=== PATIENT | female | born 1990 | race Caucasian/White ===

== ENCOUNTER → 2017-11-24 | Outpatient (REF) ==
[~2017-11-24] MED LIST: DOXY-229 PO; ETON68IM SQ; LEVO1TAB29 PO; PROG100C EC
[2017-11-24 08:43] LABS: LDL CHOLESTEROL 100 mg/dl
== END ==
DX: Z02.9 Encounter for administrative examinations, unspecified (principal)

== ENCOUNTER → 2018-02-15 | Outpatient (CLI) | payer OTHER ==
[~2018-02-15] MED LIST changes: +GADOBENATE 529MG/1ML 15ML VIAL IVP ONE; +NS 0.9% 20 ML SDV 40 ML ONE
--- NOTE | 2018-02-15 14:48 | RADIOLOGY IMAGING REPORT ---
FACILITY: [facility] - [place] PATIENT NAME: Lydia Scales : 1990 MR: [id number] V: [id number] EXAM DATE: ORDERING PHYSICIAN: DANNIE OSMAN TECHNOLOGIST: Location: [facility] [place] Patient: Lydia Scales : 1990 Visit/Account:[id number] Date of Sevice: 02/15/2018 Examination: Pituitary MR without and with contrast History: Rathke's cleft cyst Comparison: 04/28/2016, November 18, 2015, July 24, 2009 Technique: Multiplane pre and postcontrast MR imaging performed through the pituitary region. 12 mL M ultiHance injected. Axial flair and axial diffusion acquisitions obtained through the brain. Findings: There is no diffusion restriction, hydrocephalus or midline shift. No parenchymal signal abnormality. Normal optic chiasm, infundibulum and cavernous sinuses. There is hyperintense T1 signal within the posterior aspect of the sella which loses signal on the fa t-suppressed postcontrast acquisitions as before. Comparing sagittal T1 precontrast acquisitions this appears increased in size now w measuring 4.9 mm craniocaudad by 4.6 mm AP by 1.1 cm transverse. IMPRESSION: 4.9 x 4.6 x 1.1 cm hypoenhancement in the posterior pituitary gland has increased in size compared to most recent exam. This is hyperintense on precontrast T1 acquisition as seen on prior studies. 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 This could altern atively represent the normal neurohypophysis which has increased in volume compared to prior. Follow-up MR may be warranted to ensure stability. Report Dictated By: Taz Chua MD at 02/15/2018 2:09 PM Report E-Signed By: Taz Chua MD at 02/15/2018 2:45 PM WSN:[id number]
== END ==
LOC: MRI 01:24
PROVIDERS: ATTEND Physician Assistant
DX: D44.3 Neoplasm of uncertain behavior of pituitary gland (principal)
CPT/HCPCS: 70553; A9577; J7050

== ENCOUNTER → 2018-10-24 | Outpatient (REF) ==
[~2018-10-24] MED LIST changes: -GADOBENATE 529MG/1ML 15ML VIAL IVP ONE; -NS 0.9% 20 ML SDV 40 ML ONE
[2018-10-24 08:47] LABS: LDL CHOLESTEROL 79 mg/dl
== END ==
DX: Z02.9 Encounter for administrative examinations, unspecified (principal)